=== PATIENT | female | born 1955 | race Caucasian/White ===

== ENCOUNTER 2018-03-18 11:04 | Emergency (ER) | payer BC ==
[2018-03-18] MEDS ORDERED: IPRATROPIUM/ALBUTEROL (0.5MG/3MG) NEB INH ONE ×2 (11:11→11:13)
[2018-03-18] MEDS ORDERED: METHYLPREDNISOLONE PF 125MG/VIAL IVP ONE (11:11)
[2018-03-18] MEDS ORDERED: GUAIFENESIN/D-METH. 10 ML UDC PO ONE (11:19)
[2018-03-18 11:20] LABS: BASO % 0.2 % (0-6); EOS % 1.2 % (0-6); GRAN % 54.2 % (47-80); HEMATOCRIT 47.1 % (35.0-47.0); HEMOGLOBIN 15.6 gm/dl (11.6-16.0); LYMPH % 32.5 % (16-45); MEAN CELL VOLUME 98.9 fl (81-97); MEAN CORPUSCULAR HEMOGLOBIN 32.8 pg (27-33); MEAN CORPUSCULAR HGB CONC 33.1 g/dl (32-36); MEAN PLATELET VOLUME 9.6 fl (7.4-10.4); MONO % 11.9 % (0-9); PLATELET COUNT 308 K/uL (130-400); RED BLOOD COUNT 4.76 M/uL (3.80-5.40); RED CELL DISTRIBUTION WIDTH 13.8 % (11.5-14.5); WHITE BLOOD COUNT W/O DIFF 8.1 K/uL (4.2-12.2)
[2018-03-18 11:29] LABS: BLOOD UREA NITROGEN 17 mg/dL (8-23)
[2018-03-18 11:30] LABS: CREATININE 0.6 mg/dL (0.5-0.9); EST GLOMERULAR FILTRATION RATE > 60 mL/min
[2018-03-18 11:32] LABS: GLUCOSE,RANDOM 115 mg/dL (74-109)
[2018-03-18 11:33] LABS: PARTIAL THROMBOPLASTIN TIME 26.3 SECONDS (24.5-39.1)
--- NOTE | 2018-03-18 11:36 | Emergency Department Record ---
History of Present Illness - General Chief complaint: Cough Stated complaint: BLESSING Time Seen by Provider: 03/18/18 11:19 Mode of Arrival: Ambulatory - History of Present Illness Onset/Timin -: Week(s) Associated Symptoms: Cough - Related Data Home Medications Medication Instructions Recorded Confirmed Last Taken Bumetanide [Bumex] 1 mg PO DAILY 03/18/18 03/18/18 03/18/18 Celecoxib 200 mg PO DAILY 03/18/18 03/18/18 03/18/18 Losartan Potassium 50 mg PO DAILY 03/18/18 03/18/18 03/18/18 Metolazone [Zaroxolyn] 5 mg PO ASDIR 03/18/18 03/18/18 03/16/18 Rivaroxaban [Xarelto] 20 mg PO DAILY 03/18/18 03/18/18 03/18/18 Tizanidine HCl [Zanaflex] 4 mg PO TID 03/18/18 03/18/18 Unknown Topiramate 25Mg Tablet [Topiramate] 25 mg PO DAILY 03/18/18 03/18/18 03/18/18 Previous Rx's Medication Instructions Recorded Albuterol Sulfate [Ventolin Hfa] 1 - 2 puff IH .EVERY 4-6 HOURS PRN 03/18/18 #1 inhaler Azithromycin 250 mg PO DAILY #6 tablet 03/18/18 Prednisone [Prednisone 10Mg] 10 mg PO ASDIR #30 tab 03/18/18 Allergies Allergy/AdvReac Type Severity Reaction Status Date / Time No Known Drug Allergies Allergy Verified 03/18/18 11:10 Travel Screening - Travel/Exposure Within Last 30 Days Have you traveled within the last 30 days?: No - Travel/Exposure Within Last Year Have you traveled outside the [place] in the last year?: No - Additonal Travel Details Have you been exposed to anyone with a communicable illness?: No - Travel Symptoms Symptom Screening: None Past Medical History - SOCIAL HISTORY Smoking Status: Never smoker Alcohol Use: Occasional Drug Use: None - RESPIRATORY Hx Respiratory Disorders: Yes Hx Sleep Apnea: Yes Hx of CPAP: Yes - CARDIOVASCULAR Hx Cardio Disorders: Yes Hx CHF: Yes Hx Irregular Heartbeat: Yes - NEURO Hx Neuro Disorders: No - GI Hx GI Disorders: No - Hx Genitourinary Disorders: No - ENDOCRINE Hx Endocrine Disorders: No - MUSCULOSKELETAL Hx Musculoskeletal Disorders: Yes Hx Arthritis: Yes Hx Fibromyalgia: Yes - PSYCH Hx Psych Problems: Yes Hx Depression: Yes - HEMATOLOGY/ONCOLOGY Hx Hematology/Oncology Disorders: No Family Medical History Any Significant Family History?: No Course Vital Signs 03/18/18 11:17 Pulse Rate 62 Respiratory 18 Rate Blood Pressure 147/108 Pulse Ox 100 Medical Decision Making - Lab Data Result diagrams: 03/18/18 11:16 03/18/18 11:16 Lab Results 03/18/18 03/18/18 03/18/18 Range/Units 11:16 11:16 11:16 WBC 8.1 (4.2-12.2) K/uL RBC 4.76 (3.80-5.40) M/uL Hgb 15.6 (11.6-16.0) gm/dl Hct 47.1 H (35.0-47.0) % MCV 98.9 H (81-97) fl MCH 32.8 (27-33) pg MCHC 33.1 (32-36) g/dl RDW 13.8 (11.5-14.5) % Plt Count 308 (130-400) K/uL MPV 9.6 (7.4-10.4) fl Gran % 54.2 (47-80) % Lymphocytes % 32.5 (16-45) % Monocytes % 11.9 H (0-9) % Eosinophils % 1.2 (0-6) % Basophils % 0.2 (0-6) % APTT 26.3 (24.5-39.1) SECONDS D-Dimer 0.31 (0-0.59) mg/L FEU Sodium 142 (136-145) mmol/L Potassium 3.8 (3.4-4.5) mmol/L Chloride 101 (98-107) mmol/L Carbon Dioxide 27.0 (22-29) mmol/L Anion Gap 14.0 (7-16) BUN 17 (8-23) mg/dL Creatinine 0.6 (0.5-0.9) mg/dL Estimated GFR > 60 mL/min Random Glucose 115 H (74-109) mg/dL Calcium 9.3 (8.8-10.2) mg/dL Disposition Clinical Impression: Dyspnea, Bronchitis, Hyperactive airway disease Disposition: Home, Self-Care Condition: (1) Good Instructions: Acute Bronchitis (ED), Wheezing (ED) Additional Instructions: follow up with primary Dr in 2 days fluids Prescriptions: Albuterol Sulfate [Ventolin Hfa] 1 - 2 puff IH .EVERY 4-6 HOURS PRN #1 inhaler PRN Reason: Difficulty In Breathing Azithromycin 250 mg PO DAILY #6 tablet Prednisone [Prednisone 10Mg] 10 mg PO ASDIR #30 tab Forms: Patient Portal Access Quality - Quality Measures Quality Measures: N/A - Blood Pressure Screening Does Patient Have Any of the Following: No Blood Pressure Classification: Hypertensive Reading Systolic Measurement: 147 Diastolic Measurement: 108 Screening for High Blood Pressure: < Pre-Hypertensive BP, F/U Documented > [ G8950] Pre-Hypertensive Follow-up Interventions: Referral to alternative/primary care provider.
--- NOTE | 2018-03-18 11:43 | Emergency Department Record ---
History of Present Illness - General Chief Complaint: Cough Stated Complaint: BLESSING Time Seen by Provider: 03/18/18 11:19 Source: Patient, RN notes reviewed Mode of Arrival: Ambulatory - History of Present Illness Initial Comments: Patient brought over by Dr. Arrieta because SOB and cough and she had an EKG by Dr. Guaman and copy brought to the ED NSR ,No acute changes with some PACs. PMH atrial fib with ablation times two over the last two years. Most recent ablation was about one month ago. Patient states the cough started after the last ablation. worse in the last week but jorden bad the whole month. Patient stopped smoking one to two years ago. smoked about one half pack per day Onset/Timin -: Week(s) - Related Data Home Medications Medication Instructions Recorded Confirmed Last Taken Bumetanide [Bumex] 1 mg PO DAILY 03/18/18 03/18/18 03/18/18 Celecoxib 200 mg PO DAILY 03/18/18 03/18/18 03/18/18 Losartan Potassium 50 mg PO DAILY 03/18/18 03/18/18 03/18/18 Metolazone [Zaroxolyn] 5 mg PO ASDIR 03/18/18 03/18/18 03/16/18 Rivaroxaban [Xarelto] 20 mg PO DAILY 03/18/18 03/18/18 03/18/18 Tizanidine HCl [Zanaflex] 4 mg PO TID 03/18/18 03/18/18 Unknown Topiramate 25Mg Tablet [Topiramate] 25 mg PO DAILY 03/18/18 03/18/18 03/18/18 Previous Rx's Medication Instructions Recorded Albuterol Sulfate [Ventolin Hfa] 1 - 2 puff IH .EVERY 4-6 HOURS PRN 03/18/18 #1 inhaler Azithromycin 250 mg PO DAILY #6 tablet 03/18/18 Prednisone [Prednisone 10Mg] 10 mg PO ASDIR #30 tab 03/18/18 Allergies Allergy/AdvReac Type Severity Reaction Status Date / Time No Known Drug Allergies Allergy Verified 03/18/18 11:10 Travel Screening - Travel/Exposure Within Last 30 Days Have you traveled within the last 30 days?: No - Travel/Exposure Within Last Year Have you traveled outside the [place] in the last year?: No - Additonal Travel Details Have you been exposed to anyone with a communicable illness?: No - Travel Symptoms Symptom Screening: None Review of Systems Reviewed: No additional complaints except as noted below Constitutional: Reports: As per HPI. Denies: Chills, Fever, Malaise, Night sweats, Weakness, Weight change Eyes: Reports: As per HPI. Denies: Eye discharge, Eye pain, Photophobia, Vision change ENT: Reports: As per HPI. Denies: Congestion, Dental pain, Ear pain, Epistaxis , Hearing loss, Throat pain Respiratory: Reports: As per HPI, Cough, Dyspnea. Denies: Hemoptysis, Stridor, Wheezes Cardiovascular: Reports: As per HPI. Denies: Arrhythmia, Chest pain, Dyspnea on exertion, Edema, Murmurs, Orthopnea, Palpitations, Paroxysmal nocturnal dyspnea, Rheumatic Fever, Syncope Endocrine: Reports: As per HPI. Denies: Fatigue, Heat or cold intolerance, Polydipsia, Polyuria Gastrointestinal: Reports: As per HPI. Denies: Abdominal pain, Constipation, Diarrhea, Hematemesis, Hematochezia, Melena, Nausea, Vomiting Genitourinary: Reports: As per HPI. Denies: Abnormal menses, Discharge, Dyspareunia, Dysuria, Frequency, Hematuria, Incontinence, Retention, Urgency Musculoskeletal: Reports: As per HPI. Denies: Arthralgia, Back pain, Gout, Joint swelling, Myalgia, Neck pain Skin: Reports: As per HPI. Denies: Bruising, Change in color, Change in hair/ nails, Lesions, Pruritus, Rash Neurological: Reports: As per HPI. Denies: Abnormal gait, Confusion, Headache, Numbness, Paresthesias, Seizure, Tingling, Tremors, Vertigo, Weakness Psychiatric: Reports: As per HPI. Denies: Anxiety, Auditory hallucinations, Depression, Homicidal thoughts, Suicidal thoughts, Visual hallucinations Hematological/Lymphatic: Reports: As per HPI. Denies: Anemia, Blood Clots, Easy bleeding, Easy bruising, Swollen glands Past Medical History - SOCIAL HISTORY Smoking Status: Former smoker Alcohol Use: Occasional Drug Use: None - RESPIRATORY Hx Respiratory Disorders: Yes Hx Sleep Apnea: Yes Hx of CPAP: Yes - CARDIOVASCULAR Hx Cardio Disorders: Yes Hx CHF: Yes Hx Irregular Heartbeat: Yes - NEURO Hx Neuro Disorders: No - GI Hx GI Disorders: No - Hx Genitourinary Disorders: No - ENDOCRINE Hx Endocrine Disorders: No - MUSCULOSKELETAL Hx Musculoskeletal Disorders: Yes Hx Arthritis: Yes Hx Fibromyalgia: Yes - PSYCH Hx Psych Problems: Yes Hx Depression: Yes - HEMATOLOGY/ONCOLOGY Hx Hematology/Oncology Disorders: No Family Medical History Any Significant Family History?: No Physical Exam - General General Appearance: Alert, Oriented x3, Cooperative, No acute distress - Head Head exam: Normal inspection - Eye Eye exam: Normal appearance, PERRL Pupils: Normal accommodation - ENT ENT exam: Normal exam, Mucous membranes moist, Normal external ear exam, Normal orophraynx, TM's normal bilaterally Ear exam: Normal external inspection. negative: External canal tenderness Nasal Exam: Normal inspection. negative: Discharge, Sinus tenderness Mouth exam: Normal external inspection, Tongue normal Teeth exam: Normal inspection. negative: Dental caries Throat exam: Normal inspection. negative: Tonsillar erythema, Tonsillar exudate - Neck Neck exam: Normal inspection, Full ROM. negative: Tenderness - Respiratory Respiratory exam: Wheezes (spasmotic cough with a breath, scant wheezes mostly spasm with a breath). negative: Respiratory distress - Cardiovascular Cardiovascular Exam: Regular rate, Normal rhythm, Normal heart sounds - GI/Abdominal GI/Abdominal exam: Soft, Normal bowel sounds. negative: Tenderness - Rectal Rectal exam: Deferred - exam: Deferred - Extremities Extremities exam: Normal inspection, Full ROM, Normal capillary refill. negative: Tenderness - Back Back exam: Reports: Normal inspection, Full ROM. Denies: Muscle spasm, Rash noted, Tenderness - Neurological Neurological exam: Alert, Normal gait, Oriented X3, Reflexes normal - Psychiatric Psychiatric exam: Normal affect, Normal mood - Skin Skin exam: Dry, Intact, Normal color, Warm Course Vital Signs 03/18/18 11:17 Pulse Rate 62 Respiratory 18 Rate Blood Pressure 147/108 Pulse Ox 100 Medical Decision Making - Data Complexity MDM Data: Labs Ordered and/or Reviewed (wbc 8,100, trop t negative, d dimer negative), X-Ray Ordered and/or Reviewed (chest xray negative), EKG Ordered and/ or Reviewed (No acute changes) - Lab Data Result diagrams: 03/18/18 11:16 03/18/18 11:16 Lab Results 03/18/18 03/18/18 03/18/18 Range/Units 11:16 11:16 11:16 WBC 8.1 (4.2-12.2) K/uL RBC 4.76 (3.80-5.40) M/uL Hgb 15.6 (11.6-16.0) gm/dl Hct 47.1 H (35.0-47.0) % MCV 98.9 H (81-97) fl MCH 32.8 (27-33) pg MCHC 33.1 (32-36) g/dl RDW 13.8 (11.5-14.5) % Plt Count 308 (130-400) K/uL MPV 9.6 (7.4-10.4) fl Gran % 54.2 (47-80) % Lymphocytes % 32.5 (16-45) % Monocytes % 11.9 H (0-9) % Eosinophils % 1.2 (0-6) % Basophils % 0.2 (0-6) % APTT 26.3 (24.5-39.1) SECONDS D-Dimer 0.31 (0-0.59) mg/L FEU Sodium 142 (136-145) mmol/L Potassium 3.8 (3.4-4.5) mmol/L Chloride 101 (98-107) mmol/L Carbon Dioxide 27.0 (22-29) mmol/L Anion Gap 14.0 (7-16) BUN 17 (8-23) mg/dL Creatinine 0.6 (0.5-0.9) mg/dL Estimated GFR > 60 mL/min Random Glucose 115 H (74-109) mg/dL Calcium 9.3 (8.8-10.2) mg/dL Disposition Clinical Impression: Bronchitis Dyspnea Qualifiers: Dyspnea type: shortness of breath Qualified Code(s): R06.02 - Shortness of breath; R06.00 - Dyspnea, unspecified; R06.01 - Orthopnea Hyperactive airway disease Qualifiers: Asthma severity: moderate Asthma persistence: unspecified Asthma complication type: with acute exacerbation Qualified Code(s): J45.901 - Unspecified asthma with (acute) exacerbation Disposition: Home, Self-Care Condition: (1) Good Instructions: Acute Bronchitis (ED), Wheezing (ED) Additional Instructions: follow up with primary Dr in 2 days fluids Prescriptions: Albuterol Sulfate [Ventolin Hfa] 1 - 2 puff IH .EVERY 4-6 HOURS PRN #1 inhaler PRN Reason: Difficulty In Breathing Azithromycin 250 mg PO DAILY #6 tablet Prednisone [Prednisone 10Mg] 10 mg PO ASDIR #30 tab Forms: Patient Portal Access Time of Disposition: 13:11 Quality - Quality Measures Quality Measures: N/A - Blood Pressure Screening Does Patient Have Any of the Following: No Blood Pressure Classification: Hypertensive Reading Systolic Measurement: 147 Diastolic Measurement: 108 Screening for High Blood Pressure: < Pre-Hypertensive BP, F/U Documented > [ G8950] Pre-Hypertensive Follow-up Interventions: Referral to alternative/primary care provider.
[2018-03-18] MEDS ORDERED: ALBUTEROL HFA 8 GM INHALER INH ONE (13:17)
--- NOTE | 2018-03-19 14:30 | RADIOLOGY REPORT ---
EXAM: CHEST, TWO VIEWS HISTORY: DIFFICULTY IN BREATHING. TECHNIQUE: Frontal and lateral views of the chest were performed. FINDINGS: The heart size is normal. No pulmonary vascular congestion. No infiltrate or pleural effusion. The osseous structures are grossly unremarkable. There is postop surgical clips left humerus. IMPRESSION: NO ACUTE PULMONARY DISEASE PROCESS. JOB NUMBER: [id number] [facility]
== END 2018-03-18 13:35 | disposition home or self-care (01) ==
LOC: ER 11:04
DX: J45.901 Unspecified asthma with (acute) exacerbation (principal); J20.9 Acute bronchitis, unspecified; R06.01 Orthopnea; I50.9 Heart failure, unspecified; Z87.891 Personal history of nicotine dependence
CPT/HCPCS: 71046; 80048; 84484; 85025; 85379; 85730; 93005; 93010; 94640; 94664; 96374; 99284; J2930